=== PATIENT | female | born 1980 | race American Indian/Alaskan Native ===

== ENCOUNTER → 2018-01-24 | Outpatient (CLI) | payer SELFPAY ==
[~2018-01-24] MED LIST: ABX FOR UTI; ALPR.25; ALPR.25 PO; HYDACE5 PO
[2018-01-25 08:56] LABS: Candida species (DNA Probe) Negative (NEGATIVE); G. vaginalis (DNA Probe) Positive (NEGATIVE); T. vaginalis (DNA Probe) Negative (NEGATIVE)
[2018-01-26 13:11] LABS: HPV Genotype 16 Not Detected (NOTDET); HPV Genotype 18 Not Detected (NOTDET)
[2018-02-12 10:25] LABS: HPV High Risk Other Not Detected (NOTDET)
== END ==
LOC: LAB 15:27
PROVIDERS: Obstetrics & Gynecology
DX: Z12.4 Encounter for screening for malignant neoplasm of cervix (principal); N89.8 Other specified noninflammatory disorders of vagina
CPT/HCPCS: 87480; 87510; 87624; 87660; G0123

== ENCOUNTER 2025-10-04 22:43 | Emergency (ER) | payer OTHER ==
[~2025-10-04] VITALS: Ht 165.1 cm; Wt 71.2 kg
[2025-10-05 00:12] VITALS: BP 113/75
[2025-10-05] MEDS ORDERED: ACET500 PO (00:12)
[2025-10-05] MEDS ORDERED: IBUP600 PO (00:12)
== END 2025-10-05 00:22 | disposition home or self-care (01) ==
LOC: ER 22:43
DX: M79.642 Pain in left hand (principal); M79.641 Pain in right hand; F17.200 Nicotine dependence, unspecified, uncomplicated; Y04.2XXA Assault by strike against or bumped into by another person, initial encounter
CPT/HCPCS: 73130; 99283-25; A9270